=== PATIENT | male | born 2000 | race Caucasian/White ===

== ENCOUNTER 2022-06-07 22:18 | Observation (INO) ==
[2022-06-07] MEDS ORDERED: SODIUM CHLORIDE 0.9% 1000ML 1,000 ML IV STA (22:28)
[2022-06-07] MEDS ORDERED: ONDANSETRON INJ 2 MG/ML 2 ML VIAL IV STA (22:47)
[2022-06-07 22:53] LABS: Basophils # (auto) 0.04 K/uL (0-0.2); Basophils % (auto) 0.3 %; Eosinophils # (auto) 0.04 K/uL (0-0.50); Eosinophils % (auto) 0.3 %; Hematocrit (blood only) 45.8 % (40.1-51.0); Hemoglobin 16.3 g/dl (14.0-18.0); Immature Granulocytes # (auto) 0.03 K/uL (0.00-0.02); Immature Granulocytes % (auto) 0.3 %; Lymphocytes # (auto) 1.19 K/uL (1.2-3.4); Mean Corpuscular Hemoglobin 30.9 pg (25.0-34.0); Mean Corpuscular Hgb Conc 35.6 g/dL (32.0-36.0); Mean Corpuscular Volume 86.9 fL (80.0-100.0); Mean Platelet Volume 10.1 fL (9.4-12.4); Monocytes # (auto) 0.79 K/uL (0.24-0.82); Monocytes % (auto) 6.7 %; Neutrophils # (auto) 9.76 K/uL (1.4-6.5); Neutrophils % (auto) 82.4 %; Platelet Count 264 K/uL (130-400); RDW Coefficient of Variation 11.9 % (11.5-14.5); RDW Standard Deviation 37.7 fL (36.4-46.3); Red Blood Count 5.27 M/uL (4.63-6.08); White Blood Count 11.85 K/ul (4.8-10.8)
[2022-06-07 23:12] LABS: Albumin Globulin Ratio 2.2 (0.9-2); Albumin Level 4.8 gm/dl (3.4-5.0); BUN Creatinine Ratio 13.3 (10-20); Bilirubin,Total 0.6 mg/dl (0.2-1.0); Calcium 9.3 mg/dl (8.5-10.1); Creatinine Clr Calc Pharmacy 84.4 ml/min; Est GFR (African American) 79.4 ml/min; Est GFR (Non-African American) 68.5 ml/min; Globulin 2.2 gm/dl (2.5-4.0); Potassium 3.4 mmol/L (3.5-5.1)
--- NOTE | 2022-06-08 00:15 | Emergency Department Note ---
Impression & Plan Abdominal pain, Acute appendicitis ED Provider Note NAME: CLARK ECHEVERRIA AGE: 22 SEX: M : 2000 ARRIVES VIA: Walk-In INFORMANT: Patient, ED PROVIDER(S): Graham Aldana DO CHIEF COMPLAINT: Abdominal pain HPI: The patient is a 22-year-old male who presented to the emergency department with his girlfriend for evaluation of abdominal pain. The patient states he started having epigastric pain which then localized to his right lower quadrant. He has had nausea but no vomiting. He denies having any fever. He has had no chest pain or difficulty breathing. He has had no similar symptoms in the past. He denies having any testicular pain or swelling. He was not seen by provider prior to coming emergency department this evening. Patient states the pain is worse with ambulation as well as palpation over the lower abdomen. ROS: See above HPI for pertinent positives & negatives. A total of 10 systems reviewed and were otherwise negative. PAST MEDICAL HISTORY: See Below PAST SURGICAL HISTORY: See Below FAMILY HISTORY: See Below SOCIAL HISTORY: See Below HOME MEDICATIONS: See Below ALLERGIES: See Below VITALS: See Below PHYSICAL EXAMINATION: GENERAL: Patient is awake alert in no acute distress patient is resting comfortably and showing no signs of anxiety EYES: The conjunctivae are clear. The pupils are round and reactive. EARS, NOSE, MOUTH AND THROAT: The nose is without any evidence of any deformity. Mucous membranes are moist. Tongue is midline. NECK: The neck is nontender and supple. RESPIRATORY: Normal respiratory effort is noted there is no evidence of wheezing rhonchi or rales CARDIOVASCULAR: Regular rate and rhythm noted there no murmurs rubs or gallops normal S1 normal S2. GASTROINTESTINAL: The abdomen is soft and mildly distended. There is right lower quadrant tenderness to palpation but no guarding or rigidity. BACK: No midline tenderness or or step-off noted range of motion in flexion extension as well as rotation no signs of muscle spasm noted MUSCULOSKELETAL/EXTREMITIES: There is no evidence of gross deformity full range of motion is noted in the hips and shoulders. SKIN: There is no obvious evidence of any rash. There are no petechiae, pallor or cyanosis noted. NEUROLOGIC: Patient is awake alert and oriented x3. MEDICAL DECISION MAKING: The patient is a 22-year-old male who presented to the emergency department for an evaluation of possible appendicitis. The patient was found to have right lower quadrant tenderness on physical exam. White blood cell count was mildly elevated. For this reason CT of the abdomen pelvis was obtained. This appears to be consistent with acute appendicitis. I discussed patient's laboratory and radiographic studies with him. I also discussed his case with the on-call general surgeon. They have agreed to evaluate the patient in the emergency department for further management and disposition. Triage Nursing notes reviewed. Prior medical records reviewed Vital Signs: reviewed and remarkable for elevated blood pressure. Differential diagnosis: Etiologies such as appendicitis, diverticulitis, obstruction, inflammatory bowel disease, renal colic, PUD, biliary pathology, pancreatitis, mesenteric ischemia, aortic pathology, infections, genitourinary, UTI, perforated viscus, as well as others were entertained. ER treatment provided: See below Diagnostics interpreted by me: ECG: none Cardiac Monitoring: An order was placed for continuous cardiac monitoring. The monitor shows a rate of 82 bpm with sinus rhythm. Laboratory studies: As stated above and show below. Imaging studies: See below Consultation(s): I discussed this case with Dr. Zarco who is on-call for general surgery. Past Med/Surg History Social History Smoking Status: Former smoker Preferred Language: Belarusian Feels Safe at Home: Yes Allergies Allergies Allergy/AdvReac Type Severity Reaction Status Date / Time No Known Allergies Allergy Verified 06/07/22 23:43 Home Meds Home Medications Medication Instructions Recorded Confirmed multivitamin with minerals (Men's 1 tab PO DAILY 06/07/22 06/07/22 One Daily tablet) Results & Data (ED) Vital Signs Vital Signs - 24 hr 06/07/22 22:20 06/07/22 23:17 06/07/22 23:17 Temperature 36.5 C Temperature Source Temporal Artery Scan Pulse Rate 96 H 82 Pulse Rate [Apical] 79 Respiratory Rate 18 14 20 Respiratory Effort / Characteristics Non-Labored Spontaneous Respiratory Depth Normal Normal Respiratory Pattern Regular Blood Pressure 154/81 H Blood Pressure [Right Arm] 166/80 H Blood Pressure Mean 105 Blood Pressure Mean [Right Arm] 108 Pulse Oximetry 100 99 99 Oxygen Delivery Method Room Air Room Air Room Air Sepsis New/Unexplained Change in Mental Status N/A Sepsis Action Taken by Nursing No Action Required Home Medications Current Medication List: was personally reviewed by me Laboratory Data Attestation: I reviewed the patient's lab results. Result diagrams: 06/07/22 22:40 06/07/22 22:40 Lab Results 06/07/22 06/07/22 Range/Units 22:40 22:40 WBC 11.85 H (4.8-10.8) K/ul RBC 5.27 (4.63-6.08) M/uL Hgb 16.3 (14.0-18.0) g/dl Hct 45.8 (40.1-51.0) % MCV 86.9 (80.0-100.0) fL MCH 30.9 (25.0-34.0) pg MCHC 35.6 (32.0-36.0) g/dL RDW Std Deviation 37.7 (36.4-46.3) fL RDW Coeff of Manjit 11.9 (11.5-14.5) % Plt Count 264 (130-400) K/uL MPV 10.1 (9.4-12.4) fL Immature Gran % (Auto) 0.3 % Neut % (Auto) 82.4 % Lymph % (Auto) 10.0 % Jack % (Auto) 6.7 % Eos % (Auto) 0.3 % Baso % (Auto) 0.3 % Neut # (Auto) 9.76 H (1.4-6.5) K/uL Lymph # (Auto) 1.19 L (1.2-3.4) K/uL Jack # (Auto) 0.79 (0.24-0.82) K/uL Eos # (Auto) 0.04 (0-0.50) K/uL Baso # (Auto) 0.04 (0-0.2) K/uL Immature Gran # (Auto) 0.03 H (0.00-0.02) K/uL Sodium 137 (136-145) mmol/L Potassium 3.4 L (3.5-5.1) mmol/L Chloride 102 (98-107) mmol/L Carbon Dioxide 25 (21-32) mmol/L Anion Gap 10 (3-11) BUN 19 (6-23) mg/dl Creatinine 1.43 H (0.6-1.4) mg/dl Est Cr Clr Drug Dosing 84.4 ml/min Est GFR ( Amer) 79.4 ml/min Est GFR (Non-Af Amer) 68.5 ml/min BUN/Creatinine Ratio 13.3 (10-20) Glucose 123 H (70-99(Fasting)) mg/dl Calcium 9.3 (8.5-10.1) mg/dl Total Bilirubin 0.6 (0.2-1.0) mg/dl AST 17 (13-39) U/L ALT 22 (7-52) U/L Alkaline Phosphatase 56 (34-104) U/L Total Protein 7.0 (6.0-8.3) gm/dl Albumin 4.8 (3.4-5.0) gm/dl Globulin 2.2 L (2.5-4.0) gm/dl Albumin/Globulin Ratio 2.2 H (0.9-2) Lipase 37 (11-82) U/L Administered Medications Discontinued Medications Sodium Chloride (Nss 1000ml) 1,000 mls @ 999 mls/hr IV .Q1H1M STA Stop: 06/07/22 23:28 Last Admin: 06/07/22 22:57 Dose: 999 mls/hr Documented By: [employer] Ondansetron HCl (Ondansetron Inj 2 Mg/Ml 2 Ml Vial) 4 mg IV NOW STA Stop: 06/07/22 22:48 Last Admin: 06/07/22 22:57 Dose: 4 mg Documented By: [employer] Imaging Data Radiologist's Impression: Patient: CLARK ECHEVERRIA (Male) : 89 Status: ER Date: 06/07/22 23:23 Room #: History: RLQ ABD PAIN , NAUSEA , APPENDIX PRESENT Slices: [id number] Priors: Tech: Priyank Prince @ [phone] Exams: CT ABDOMEN & PELVIS Without Contrast Contrast: Accession Numbers: [id number] Referring Physician: REFERRED SELF Preliminary Findings Only See Final Report For Complete Findings CT ABDOMEN & PELVIS Without Contrast: Acute appendicitis. No abscess or perforation. The appendix measures 1.1 cm in diameter. The solid organs are within normal limits. No bowel obstruction. No fracture. Radiologist: Eli Patterson MD Study ready at 23:28 and initial results transmitted at 00:14 Communications: Clear Time Type Notes Call Doctor Appendicitis Discharge Plan Visit Data Chief Complaint: Abdominal Pain Stated Complaint: ABDOM PAIN ED Provider: Graham Aldana Discharge Problem: Abdominal pain, Acute appendicitis Patient Disposition: Being Evaluated by Surgeon Forms Stand Alone Forms: [employer]Line Prescriptions Prescriptions: No Action Men's One Daily Tablet 1 tab PO DAILY Referrals Referrals: PCP,NO [Primary Care Provider] - : Abdominal pain Qualifiers: Abdominal location: right lower quadrant Qualified Code(s): R10.31 - Right lower quadrant pain Acute appendicitis Qualifiers: Acute appendicitis type: with localized peritonitis Appendicitis gangrene presence: without gangrene Appendicitis perforation presence: without perforation Appendicitis abscess presence: without abscess Qualified Code(s): K35.30 - Acute appendicitis with localized peritonitis, without perforation or gangrene
[2022-06-08 00:35] LABS: Appearance Urine Clear (Clear); Bilirubin Urine Negative (Negative); Blood Urine Negative (Negative); Color Urine Yellow; Glucose Urine UA Negative (Negative); Ketones Urine Negative (Negative); Leukocyte Esterase Urine Negative (Negative); Nitrite Urine Negative (Negative); Protein Urine Negative (Negative); Urobilinogen Urine Negative (Negative); pH Urine 6.5 (4.5-7.5)
[2022-06-08] MEDS ORDERED: cefOXitin 2,000 MG in DEXTROSE 5% 50 ML IV STA (00:50)
[2022-06-08] MEDS ORDERED: ONDANSETRON INJ 2 MG/ML 2 ML VIAL IV PRN ×2 (00:50→05:24)
[2022-06-08] MEDS ORDERED: HYDROmorphone INJ 0.5 MG/0.5 ML SYR IV PRN ×2 (00:50)
[2022-06-08] MEDS ORDERED: PROMETHAZINE HCL 12.5 MG in SODIUM CHLORIDE 0.9% 50 ML IV PRN (00:50)
--- NOTE | 2022-06-08 00:50 | History & Physical Report ---
Date of Service June 08, 2022 Assessment & Plan (1) Acute appendicitis: Plan: Patient with acute appendicitis which appears to be uncomplicated Plan is for laparoscopic appendectomy Likely proceed culinary intern-for now IV antibiotics and IV fluids Acute appendicitis type: with localized peritonitis Appendicitis abscess presence: without abscess Appendicitis gangrene presence: without gangrene Appendicitis perforation presence: without perforation Qualified Code(s): K35.30 - Acute appendicitis with localized peritonitis, without perforation or gangrene History of Present Illness Chief Complaint: Abdominal pain Primary Care Provider: NO PCP 22-year-old male presenting the emergency room with abdominal pain Isolated to the right lower quadrant On work-up his CAT scan showed evidence of acute appendicitis with no overt abscess Allergies Allergy/AdvReac Type Severity Reaction Status Date / Time No Known Allergies Allergy Verified 06/07/22 23:43 Home Medications Medication Instructions Recorded Confirmed Type multivitamin with minerals (Men's 1 tab PO DAILY 06/07/22 06/07/22 History One Daily tablet) Past Med/Surg History Social History Smoking Status: Former smoker Preferred Language: Filipino Feels Safe at Home: Yes Review of Systems All systems reviewed & are unremarkable except as noted in HPI & below Physical Exam Physical Exam: Patient with right lower quadrant tenderness Constitutional: well developed and well nourished; no acute distress Eyes: + anicteric sclerae Respiratory: normal respiratory effort; no respiratory distress Cardiovascular: Rate/Rhythm: regular rate Gastrointestinal (Abdomen): Inspection/Auscultation: abdomen not distended Musculoskeletal: Head/Neck/Chest: head atraumatic Skin: no rashes, warm and dry Neurologic: awake Psychiatric: Orientation: alert Results & Data ([facility]) Vital Signs (Past 12 Hours) Vital Signs Temp Pulse Pulse Resp BP BP Pulse Ox 06/07/22 23:17 82 20 99 06/07/22 23:17 79 14 166/80 H 99 06/07/22 22:20 36.5 C 96 H 18 154/81 H 100 O2 Del Method 06/07/22 23:17 Room Air 06/07/22 23:17 Room Air 06/07/22 22:20 Room Air Laboratory Results I reviewed his laboratories Diagnostic Findings I reviewed his CAT scan with films
[2022-06-08] MEDS: SODIUM CHLORIDE 0.9% 1000ML 1,000 ML IV SCH ×2 (03:29→16:48)
[2022-06-08] MEDS ORDERED: ONDANSETRON INJ 2 MG/ML 2 ML VIAL ONE (05:07)
[2022-06-08] MEDS ORDERED: MIDAZOLAM HCL 1 MG/ML 2ML VIAL ONE (05:07)
[2022-06-08] MEDS ORDERED: SUCCINYLCHOLINE CHLORIDE 20 MG/ML 10 ML VIAL IV ONE (05:07)
[2022-06-08] MEDS ORDERED: fentaNYL citrate 100 MCG/2 ML VIAL ONE (05:07)
[2022-06-08] MEDS ORDERED: LIDOCAINE 2% 2 ML VIAL/AMP(20MG/ML) INFIL ONE (05:07)
[2022-06-08] MEDS ORDERED: ROCURONIUM BROMIDE 10 MG/ML 5 ML VIAL IV ONE (05:07)
[2022-06-08] MEDS ORDERED: PROPOFOL IV EMULSION 10 MG/ML 20 ML VIAL IV ONE (05:07)
[2022-06-08] MEDS ORDERED: BUPIVACAINE 0.5 % 5 MG/1 ML MPF 30ML VIAL ONE (05:15)
[2022-06-08] MEDS ORDERED: ATROPINE SULFATE 0.1 MG/ML 10ML SYR IV PRN (05:24)
[2022-06-08] MEDS ORDERED: ePHEDrine sulfate 50 MG/ML AMP IV PRN (05:24)
[2022-06-08] MEDS ORDERED: fentaNYL citrate 100 MCG/2 ML VIAL IV PRN (05:24)
[2022-06-08] MEDS ORDERED: HYDROmorphone INJ 2 MG/ML SYR/VIAL IV PRN (05:24)
[2022-06-08] MEDS ORDERED: PROMETHAZINE HCL 6.25 MG in SODIUM CHLORIDE 0.9% 50 ML IV PRN (05:24)
--- NOTE | 2022-06-08 05:26 | Anesthesiology Consultation ---
Date of Service June 08, 2022 Assessment & Plan (1) Encounter for pre-operative examination: Chart Review Chart Review: Acceptable Risk for Surgery and Patient NOT seen in Pre Admission Testing Consults Requested none History Surgery Operation Date: 06/08/22 05:00 Proposed Procedures p Laparoscopic Appendectomy - Charles Zarco MD, FACS Height/Weight Height: 6 ft 3 in Weight: 84 kg Allergies Allergy/AdvReac Type Severity Reaction Status Date / Time No Known Allergies Allergy Verified 06/07/22 23:43 Medications Home Medications Medication Instructions Recorded Confirmed Last Taken multivitamin with minerals (Men's 1 tab PO DAILY 06/07/22 06/07/22 06/07/22 One Daily tablet) Active Medications Generic Name Dose Route Start Last Admin Trade Name Freq PRN Reason Stop Dose Admin Sodium Chloride 1,000 mls @ 80 mls/hr 06/08/22 01:00 06/08/22 03:29 Nss 1000ml IV 07/08/22 00:59 80 mls/hr .[id number] RIGO Administration NPO Date Last Intake of Fluids: 06/07/22 Time Last Intake of Fluids: 22:00 Date Last Intake of Solids: 06/07/22 Time Last Intake of Solids: 19:00 Past Medical History Medical History (Updated 06/08/22 @ 05:26 by José Bishop MD) Acute appendicitis Exercise / Class Metabolic Activity 1 > 8 Run/Swim/Ski/Tennis Past Surgical History inguinal hernia repair Past Anesthesia History No Hx of Anesthesia Complications and No Family Hx of Anesthesia Complications History of PONV No Hx of PONV and No Hx of Motion Sickness Social History Smoking Status: Never smoker Do You Dip or Chew Tobacco: No Hx Alcohol Use: Yes Alcohol type: beer alcohol intake frequency: a few times a week Hx Substance Use: No substance use type: does not use Physical Exam Vital Signs Last Vital Signs Temp 37.5 C 06/08/22 05:15 Pulse 95 H 06/08/22 05:15 Resp 16 06/08/22 05:15 BP 143/78 H 06/08/22 05:15 Pulse Ox 99 06/08/22 05:15 O2 Del Method 06/08/22 05:15 Testing Laboratory Results 06/07/22 22:40 06/07/22 22:40 Urine Color Yellow 06/08/22 00:23 Urine Appearance Clear (Clear) 06/08/22 00:23 Urine pH 6.5 (4.5-7.5) 06/08/22 00:23 Ur Specific [place] 1.010 (1.000-1.030) 06/08/22 00:23 Urine Protein Negative (Negative) 06/08/22 00:23 Urine Glucose (UA) Negative (Negative) 06/08/22 00:23 Urine Ketones Negative (Negative) 06/08/22 00: Urine Nitrite Negative (Negative) 06/08/22 00:23 Ur Leukocyte Esterase Negative (Negative) 06/08/22 00:23
[2022-06-08] MEDS ORDERED: KETOROLAC 30 MG/ML VIAL ONE (06:20)
[2022-06-08] MEDS ORDERED: ACETAMINOPHEN 1,000 MG/100 ML VIAL IV ONE (06:38)
--- NOTE | 2022-06-08 06:38 | Post Operative Brief Note ---
PG Immediate Post Op with CF Date of Surgery June 08, 2022 Pre & Post Diagnosis Operation Date: 06/08/22 05:00 Pre-Op Diagnosis: ACUTE APPENDICITIS Post-Op Diagnosis: ACUTE APPENDICITIS I identified the patient and participated in the time-out.: Yes Procedure Operation Date: 06/08/22 05:00 Actual Procedures p Laparoscopic Appendectomy(Not Applicable) - Charles Zarco MD, FACS Surgeon Charles Zarco MD, FACS Mailroom Supervisor Nurses Estimated Blood Loss 5 Findings Consistent with Post-Op Diagnosis Acute appendicitis with periappendiceal fluid Specimens Specimen Description: permanent specimen: A) Appendix
--- NOTE | 2022-06-08 07:07 | Anesthesiology Progress Note ---
Date of Service June 08, 2022 Anesthesia Post Procedure Vital Signs Vital Signs: Temp Pulse Pulse Pulse Resp BP BP 06/08/22 07:00 60 15 135/78 06/08/22 06:50 37.0 C 81 15 148/77 H 06/08/22 05:15 37.5 C 95 H 16 06/08/22 02:42 36.7 C 88 20 06/08/22 02:42 06/08/22 02:42 36.7 C 88 20 06/08/22 02:15 93 H 18 06/07/22 23:17 82 20 06/07/22 23:17 79 14 06/07/22 22:20 36.5 C 96 H 18 154/81 H BP Pulse Ox O2 Del Method O2 Flow Rate 06/08/22 07:00 100 Oxymask 2 06/08/22 06:50 100 Oxymask 4 06/08/22 05:15 143/78 H 99 Room Air 06/08/22 02:42 138/85 99 Room Air 06/08/22 02:42 Room Air 06/08/22 02:42 138/85 99 Room Air 06/08/22 02:15 145/80 H 98 Room Air 06/07/22 23:17 99 Room Air 06/07/22 23:17 166/80 H 99 Room Air 06/07/22 22:20 100 Room Air Pain Intensity Right Lower Abdomen: Pain Intensity: 2 Transfer of Care Handoff Completed per policy Notes Mental Status: alert / awake / arousable and participated in evaluation Patient Amnestic to Procedure: Yes Nausea / Vomiting: adequately controlled Pain: adequately controlled Airway Patency, RR, SpO2: stable & adequate BP & HR: stable & adequate Hydration State: stable & adequate Anesthetic Complications: no major complications apparent and Pt Satisfied with anesthetic care
--- NOTE | 2022-06-08 09:34 | Operative Report (OR) ---
DATE OF OPERATION: 06/08/2022. NAME OF OPERATION: Laparoscopic appendectomy. PREOPERATIVE DIAGNOSIS: Acute appendicitis. POSTOPERATIVE DIAGNOSIS: Acute appendicitis. STAFF SURGEON: Charles Zarco MD. ANESTHESIA: General. DESCRIPTION OF PROCEDURE: The patient was brought in the operating room and placed on the operating table in supine position. Pneumatic stockings and orogastric tube were placed. His abdomen was prep ped and draped in the usual fashion. A 0.5% plain Marcaine was used to anesthetize all incisions. A n incision was made just above the umbilicus, carrying dissection down into the abdomen, placing a Ve ress needle producing pneumoperitoneum. An 11 mm port placed at this level. Under visualization, 5 mm port placed suprapubically and then left lower quadrant 12 mm port placed. Cecum was reflected. T here was a very small amount of fluid next to the inflamed appendix in the right lateral gutter. Thi s was aspirated and irrigated. The appendix was retracted. The mesoappendix was transected using br own load of Endo-JB stapler and the base of the appendix transected using another brown load Endo-GI A stapler. The appendix was placed in an Endobag and then removed through the 12 mm port site in lef t lower quadrant. The site was irrigated. Hemostasis was maintained. All ports were removed. Ther e was no significant fluid in the pelvis. The fascia at the umbilicus and left lower quadrant closed using 0 Vicryl suture. The skin was reapproximated using subcuticular 4-0 Monocryl. Dermabond at t he umbilical area and suprapubic area. Steri-Strips in left lower quadrant. The patient was transfe rred to recovery room in stable condition. Job ID: [id number]
--- NOTE | 2022-06-08 18:55 | CT Scan Report ---
CT abd pelvis wo con CLINICAL HISTORY: RLQ pain TECHNIQUE: Helical axial images of the abdomen and pelvis were obtained. Automated dose lowering tech niques and/or adjustment according to patient size were utilized for this exam. This exam was perfor med without intravenous contrast. CT DOSE: 351.52 mGy.cm COMPARISON: None available at the time of this dictation. FINDINGS: Lower chest: No acute abnormality Liver: Unremarkable. No focal lesions are seen. Gallbladder and biliary tree: No calcified gallstones. Normal caliber wall. No intra- or extrahepatic biliary ductal dilation. Pancreas: Unremarkable, no focal lesions. Spleen: Unremarkable. Adrenals: Unremarkable. Kidneys and ureters: Unremarkable. Bladder: Unremarkable. Reproductive organs: Unremarkable. Bowel: There is thickening and fat stranding about the appendix. The appendix measures approximately 9 mm in diameter. No evidence of abscess or perforation is seen. Lymph nodes Retroperitoneal: Unremarkable. Pelvic: Unremarkable. Mesenteric: Unremarkable. Peritoneum: Normal. Vessels: Unremarkable. Abdominal wall: Unremarkable. Bones: Degenerative changes in the visualized spine. IMPRESSION: There is acute appendicitis without evidence of perforation or abscess formation. ACT 112: Negative or not required by law. Electronically signed by: Chidi Crook M.D. 06/08/2022 6:53 PM
--- NOTE | 2022-06-08 21:15 | Discharge Summary (DS) ---
DATE OF ADMISSION: Early a.m. 06/08/2022 DATE OF DISCHARGE: 06/08/2022 PRINCIPAL DIAGNOSIS: Acute appendicitis. PROCEDURE: The patient underwent laparoscopic appendectomy. HISTORY OF PRESENT ILLNESS: The patient is a 22-year-old male presenting to the Emergency Room with acute right lower quadrant abdominal pain with workup including CAT scan showing acute appendicitis. The patient was taken to the operating room where he underwent laparoscopic appendectomy, which he t olerated well. He did well through the day and was felt stable for discharge, to be followed in the surgical clinic within 1-2 weeks. Job ID: [id number]
== END 2022-06-08 17:34 | disposition home or self-care (01) | DRG 343 ==
LOC: ED 22:18 → 3N 06-08 00:50 → INTOOBSV 06-08 00:50 → 3N 06-08 02:24